=== PATIENT | female | born 1980 | race Caucasian/White ===

== ENCOUNTER → 2016-12-12 | Outpatient (CLI) | payer OTHER ==
[2015-08-30 09:56] VITALS: BP 174/94
[~2016-12-12] MED LIST: Birth Control PO
--- NOTE | 2016-12-12 09:46 | RAD ---
Chest, 2 views, 12/12/2016: History: Smoking history, family history of lung cancer Comparison is made to a study from 02/18/2010. The heart size is normal. There is a calcified granuloma in the right lung. No pulmonary infiltrate is seen. There is no evidence of pleural fluid. Mild spurring is present in the spine. IMPRESSION: No acute cardiopulmonary abnormality is detected.
== END | disposition home or self-care (01) ==
LOC: DXRAD 09:22
PROVIDERS: ATTEND Nurse Practitioner Family
DX: Z87.891 Personal history of nicotine dependence (principal); Z80.1 Family history of malignant neoplasm of trachea, bronchus and lung
CPT/HCPCS: 71020

== ENCOUNTER → 2017-10-12 | Outpatient (CLI) | payer OTHER ==
[2015-08-30 09:56] VITALS: BP 174/94
--- NOTE | 2017-10-12 12:48 | RAD ---
PA and lateral chest radiograph. History: Dyspnea for 2 weeks. Comparison: December 12, 2016. Findings: Cardiomediastinal silhouette is within normal limits for size. Bilateral lung marquis appear clear without evidence of infiltrate, effusion, or pneumothorax. Old granulomatous disease of chest is noted. Impression: 1. No acute cardiopulmonary process. Electronically signed by: Mikael Delgadillo MD (10/12/2017 12:45 PM) [facility]
== END | disposition home or self-care (01) ==
LOC: RAD 10:51
PROVIDERS: ATTEND Physician Assistant
DX: D71 Functional disorders of polymorphonuclear neutrophils (principal); Z87.891 Personal history of nicotine dependence
CPT/HCPCS: 71046

== ENCOUNTER → 2018-03-17 | Outpatient (CLI) | payer OTHER ==
[2015-08-30 09:56] VITALS: BP 174/94
--- NOTE | 2018-03-17 18:39 | RAD ---
EXAM: CHEST 2 VIEWS. HISTORY: Dyspnea, cough. COMPARISON: 10/12/2017. FINDINGS: Frontal and lateral views of the chest are obtained. The lungs are expanded to the 11th posterior ribs. The hemidiaphragms are not flattened. There are no confluent infiltrates. There is no pneumothorax or pleural effusion. The heart is not enlarged. IMPRESSION: 1. Hyperinflation may indicate only deep respiratory effort. Correlate for air trapping. No confluent infiltrates. Electronically signed by: Phill Little MD (03/17/2018 6:36 PM) [facility]
== END | disposition home or self-care (01) ==
LOC: RAD 17:52
PROVIDERS: ATTEND Family Medicine
DX: R06.09 Other forms of dyspnea (principal); R05 Cough; R09.89 Other specified symptoms and signs involving the circulatory and respiratory systems
CPT/HCPCS: 71046

== ENCOUNTER 2018-06-10 17:31 | Emergency (ER) | payer OTHER ==
[~2018-06-10] VITALS: Ht 175.3 cm; Wt 77.1 kg
--- NOTE | 2018-06-10 18:20 | PHYS DOC ---
Past History Past Medical History: Ovarian Cyst, Other Past Surgical History: Cholecystectomy, Hysterectomy Adult General Chief Complaint Chief Complaint: FLANK PAIN HPI HPI Patient is a 37 year old female who presents with complaining of intermittent episodes of right flank pain for the last 2 weeks as a sharp pain with radiation to lower back that happens without relation to activity or ambulation or eating. Patient states the pain sometimes lasts all day and rated her pain from 3-10. Patient states her pain right thigh 6/10. Patient was seen by her primary care physician and had blood in her urine but because of insurance problem was not able to have CT scan. Patient states she has a new plan for insurance today and has of increasing pain decided to come to ER. Patient denies fever, chills, urinary symptom, vomiting, diarrhea and constipation. Pt. follows with in [facility]. Review of Systems Review of Systems Constitutional: Denies fever or chills [] Eyes: Denies change in visual acuity, redness, or eye pain [] HENT: Denies nasal congestion or sore throat [] Respiratory: Denies cough or shortness of breath [] Cardiovascular: No additional information not addressed in HPI [] GI: Complaints of abdominal pain, nausea. Denies, vomiting, bloody stools or diarrhea [] : Denies dysuria or hematuria [] Musculoskeletal: Denies back pain or joint pain [] Integument: Denies rash or skin lesions [] Neurologic: Denies headache, focal weakness or sensory changes [] Endocrine: Denies polyuria or polydipsia [] All other systems were reviewed and found to be within normal limits, except as documented in this note. Family History Family History Uncle and Grandfather with Renal CA Current Medications Current Medications See Nursing Allergies Allergies Allergies Coded Allergies Type Severity Reaction Last Updated Verified codeine Allergy Unknown 04/19/14 Yes Physical Exam Physical Exam Constitutional: Well developed, well nourished, moderate distress, non-toxic appearance. [] HENT: Normocephalic, atraumatic, oropharynx moist, no oral exudates, nose normal. [] Eyes: PERRLA, EOMI, conjunctiva normal, no discharge. [] Neck: Normal range of motion, no tenderness, supple, no stridor. [] Cardiovascular:Heart rate regular rhythm, no murmur [] Lungs & Thorax: Bilateral breath sounds clear to auscultation [] Abdomen: Bowel sounds normal, soft, mild Rt. flank tenderness, no masses, no pulsatile masses. [] Old surgery scars. Skin: Warm, dry, no erythema, no rash. [] Back: No tenderness, no CVA tenderness. [] Extremities: No tenderness, no cyanosis, no clubbing, ROM intact, no edema. [] No psoas or heel tap. Neurologic: Alert and oriented X 3, normal motor function, normal sensory function, no focal deficits noted. [] Psychologic: Affect anxious, judgement normal, mood normal. [] EKG EKG [] Radiology/Procedures Radiology/Procedures My interpretation of abdomen CT with and without contrast. Shows no acute hydronephrosis or acute surgical findings. Course & Med Decision Making Course & Med Decision Making Pertinent Labs and Imaging studies are pending. Patient care transferred to Dr. Churchill at 1820. Pt[address] CT without contrast shows no acute surgical processes or hydro nephrosis. Pt. complaints of increased abd. pain. Now requesting narcotics. [address] with contrast. Impression: 1. Abdomen Pain- Rt Flank 2. Constipation Dragon Disclaimer Dragon Disclaimer This electronic medical record was generated, in whole or in part, using a voice recognition dictation system. Departure Departure: Impression: Primary Impression: Right flank pain Referrals: ALONSO PINEDA (PCP) Kevin Disclaimer This chart was dictated in whole or in part using Voice Recognition software in a busy, high-work load, and often noisy Emergency Department environment. It may contain unintended and wholly unrecognized errors or omissions. Discharge Summary Visit Information Final Diagnosis Problems Medical Problems: (1) Right flank pain Status: Acute Brief Hospital Course Allergies Allergies Coded Allergies Type Severity Reaction Last Updated Verified codeine Allergy Intermediate 06/10/18 Yes Vital Signs Vital Signs Date Time Temp Pulse Resp B/P (MAP) Pulse Ox O2 Delivery O2 Flow Rate FiO2 06/10/18 22:10 66 18 120/34 (62) 98 Room Air 06/10/18 17:31 98.8 Lab Results Laboratory Tests Test 06/10/18 18:00 White Blood Count 8.1 x10^3/uL (4.0-11.0) Red Blood Count 4.22 x10^6/uL (3.50-5.40) Hemoglobin 14.3 g/dL (12.0-15.5) Hematocrit 41.8 % (36.0-47.0) Mean Corpuscular Volume 99 fL (79-100) Mean Corpuscular Hemoglobin 34 pg (25-35) Mean Corpuscular Hemoglobin Concent 34 g/dL (31-37) Red Cell Distribution Width 11.8 % (11.5-14.5) Platelet Count 219 x10^3/uL (140-400) Neutrophils (%) (Auto) 55 % (31-73) Lymphocytes (%) (Auto) 32 % (24-48) Monocytes (%) (Auto) 11 % (0-9) Eosinophils (%) (Auto) 2 % (0-3) Basophils (%) (Auto) 1 % (0-3) Neutrophils # (Auto) 4.4 x10^3uL (1.8-7.7) Lymphocytes # (Auto) 2.6 x10^3/uL (1.0-4.8) Monocytes # (Auto) 0.8 x10^3/uL (0.0-1.1) Eosinophils # (Auto) 0.1 x10^3/uL (0.0-0.7) Basophils # (Auto) 0.0 x10^3/uL (0.0-0.2) Urine Collection Type Unknown Urine Color Yellow Urine Clarity Hazy Urine pH 6.0 Urine Specific [place] >=1.030 Urine Protein Neg (NEG-TRACE) Urine Glucose (UA) Neg mg/dL (NEG) Urine Ketones (Stick) Neg mg/dL (NEG) Urine Blood Neg (NEG) Urine Nitrite Neg (NEG) Urine Bilirubin Neg (NEG) Urine Urobilinogen Dipstick 0.2 mg/dL (0.2 mg/dL) Urine Leukocyte Esterase Neg (NEG) Urine RBC Occ /HPF (0-2) Urine WBC Occ /HPF (0-4) Urine Squamous Epithelial Cells Many /LPF Urine Bacteria 0 /HPF (0-FEW) Urine Mucus Mod /LPF Sodium Level 140 mmol/L (136-145) Potassium Level 3.7 mmol/L (3.5-5.1) Chloride Level 104 mmol/L (98-107) Carbon Dioxide Level 27 mmol/L (21-32) Anion Gap 9 (6-14) Blood Urea Nitrogen 15 mg/dL (7-20) Creatinine 0.8 mg/dL (0.6-1.0) Estimated GFR (Cockcroft-Gault) 80.7 BUN/Creatinine Ratio 19 (6-20) Glucose Level 104 mg/dL (70-99) Calcium Level 8.4 mg/dL (8.5-10.1) Total Bilirubin 0.3 mg/dL (0.2-1.0) Aspartate Amino Transf (AST/SGOT) 12 U/L (15-37) Alanine Aminotransferase (ALT/SGPT) 16 U/L (14-59) Alkaline Phosphatase 56 U/L (46-116) Total Protein 6.5 g/dL (6.4-8.2) Albumin 3.2 g/dL (3.4-5.0) Albumin/Globulin Ratio 1.0 (1.0-1.7) Lipase 94 U/L (73-393) Brief Hospital Course Ms. Siddiqui is a 37 old fe,a;e who presented with rt. flank abd. pain. No acute surgical processes noted. No acute hydronephrosis. Patient follow-up primary care. Clear fluid diet patient return if any concerns. Discharge Information Condition at Discharge: Improved, Stable Disposition/Orders: D/C to Home Dischare Medications Current Medications Magnesium Hydroxide (Milk Of Magnesia) 2,400 mg 1X ONCE PO Last administered on 06/10/18at 19:56; Start 06/10/18 at 20:00; Stop 06/10/18 at 20:01; Status DC Fentanyl Citrate (Fentanyl 2ml Vial) 50 mcg 1X ONCE IV Last administered on 06/10/18at 19:58; Start 06/10/18 at 20:00; Stop 06/10/18 at 20:01; Status DC Ondansetron HCl (Zofran) 8 mg 1X ONCE IV Last administered on 06/10/18at 19:56; Start 06/10/18 at 20:00; Stop 06/10/18 at 20:01; Status DC Lactated Ringer's 1,000 ml @ 1,000 mls/hr 1X ONCE IV Last administered on 06/10at 19:55; Start 06/10/18 at 20:00; Stop 06/10/18 at 20:59; Status DC Iohexol (Omnipaque 240 Mg/ml) 50 ml [employer]K-[employer] ONCE .ROUTE ; Start 06/10/18 at 19:53 ; Stop 06/10/18 at 19:54; Status DC Iohexol (Omnipaque 240 Mg/ml) 50 ml 1X ONCE PO Last administered on 06/10/18at 21:13; Start 06/10/18 at 20:45; Stop 06/10/18 at 20:46; Status DC Iohexol (Omnipaque 300 Mg/ml) 75 ml 1X ONCE IV Last administered on 06/10/18at 21:13; Start 06/10/18 at 20:45; Stop 06/10/18 at 20:46; Status DC Info (Do NOT chart on this entry -- for MONITORING) 1 each PRN DAILY PRN MC SEE COMMENTS; Start 06/10/18 at 20:30; Stop 06/10/18 at 22:13; Status DC Active Scripts Active Reported [ Control] PO DAILY REINA MARLEY MD Jun 10, 2018 18:20 TROY CHURCHILL MD Jun 10, 2018 18:49
[2018-06-10 18:21] LABS: BASO % 1 % (0-3); EOS # 0.1 x10^3/uL (0.0-0.7); EOS % 2 % (0-3); HEMATOCRIT 41.8 % (36.0-47.0); HEMOGLOBIN 14.3 g/dL (12.0-15.5); LYMPH # 2.6 x10^3/uL (1.0-4.8); LYMPH % 32 % (24-48); MEAN CORPUSCULAR HEMOGLOBIN 34 pg (25-35); MEAN CORPUSCULAR HGB CONC 34 g/dL (31-37); MEAN CORPUSCULAR VOLUME 99 fL (79-100); MONO # 0.8 x10^3/uL (0.0-1.1); MONO % 11 % (0-9); NEUT # 4.4 x10^3uL (1.8-7.7); NEUT % 55 % (31-73); PLATELET COUNT 219 x10^3/uL (140-400); RED BLOOD COUNT 4.22 x10^6/uL (3.50-5.40); RED CELL DISTRIBUTION WIDTH 11.8 % (11.5-14.5); WHITE BLOOD COUNT 8.1 x10^3/uL (4.0-11.0)
[2018-06-10 18:25] LABS: BACTERIA,URINE 0 /HPF (0-FEW); BILIRUBIN,URINE NEG (NEG); CLARITY,URINE HAZY; COLOR,URINE YELLOW; GLUCOSE,URINE NEG (NEG); NITRITE,URINE NEG (NEG); RBC,URINE OCC /HPF (0-2); SQUAMOUS EPITHELIAL CELL,UR MANY /LPF; UROBILINOGEN,URINE 0.2 mg/dL (0.2 mg/dL); WBC,URINE OCC /HPF (0-4)
[2018-06-10 18:28] LABS: ALBUMIN 3.2 g/dL (3.4-5.0); CALCIUM 8.4 mg/dL (8.5-10.1); CREATININE 0.8 mg/dL (0.6-1.0); GFR 80.7; POTASSIUM 3.7 mmol/L (3.5-5.1); TOTAL BILIRUBIN 0.3 mg/dL (0.2-1.0); TOTAL PROTEIN 6.5 g/dL (6.4-8.2)
--- NOTE | 2018-06-10 19:15 | RAD ---
Abdominal and Pelvis CT, Without Contrast: History: Right 2 days hematuria and right flank pain. Comparison: None. Procedure: Axial images are obtained of the abdomen and pelvis, without IV or oral contrast. CT Abdomen without Contrast: Findings: Evaluation of solid organs is limited without contrast. Evaluation of stomach and bowel is limited without oral contrast. Liver: Normal. Spleen: Normal. Pancreas: Normal. Adrenal Glands: Normal. Kidneys: Normal. There is no free air or free fluid. There is no lymphadenopathy. Impression: Please see CT Pelvis without Contrast. End Impression. CT Pelvis without Contrast: Findings: The urinary bladder appears normal. There is no free fluid. There is no lymphadenopathy. There is no pericolonic inflammation identified. The appendix is normal. Impression: No evidence of urolithiasis or obstructive uropathy. No acute findings. End impression PQRS Compliance Statement: One or more of the following individualized dose reduction techniques were utilized for this examination: 1. Automated exposure control 2. Adjustment of the mA and/or kV according to patient size 3. Use of iterative reconstruction technique Electronically signed by: Gigi Melo III, MD (06/10/2018 7:11 PM) [id number]
[2018-06-10] MEDS ORDERED: IOHEXOL 240 MG/ML 50ML VIAL. ONE (19:53)
[2018-06-10] MEDS ORDERED: MAGNESIUM HYDROXIDE 2,400 MG/30 ML ORAL.SUSP. PO ONE (20:00)
[2018-06-10] MEDS ORDERED: IV RINGERS SOLUTION,LACTATED 1,000 ML IV ONE (20:00)
[2018-06-10] MEDS ORDERED: ONDANSETRON PF 4 MG/2 ML VIAL. IV ONE (20:00)
[2018-06-10] MEDS ORDERED: CONTRAST GIVEN MC PRN (20:30)
[2018-06-10] MEDS ORDERED: IOHEXOL 240 MG/ML 50ML VIAL. PO ONE (20:45)
[2018-06-10] MEDS ORDERED: IOHEXOL 300 MG/ML 75 ML VIAL. IV ONE (20:45)
--- NOTE | 2018-06-10 21:35 | RAD ---
CT SCAN OF THE ABDOMEN AND PELVIS WITH IV CONTRAST. History: Right-sided abdominal pain with nausea and vomiting Comparison:None. Procedure: Contiguous axial images of the abdomen and pelvis were performed after the administration of 75 cc of Omni 300 IV contrast and oral contrast. CT Abdomen with contrast: Findings: There has been prior cholecystectomy. Liver: Unremarkable Spleen: Unremarkable Pancreas: Unremarkable Adrenal Glands: Unremarkable Kidneys: Unremarkable There is no mass or lymphadenopathy. There is no free air. There is no free fluid. Impression: No acute findings. End Impression CT Pelvis with Contrast: Findings: The urinary bladder appears normal. There is no lymphadenopathy. There is a trace of free fluid. The appendix is normal. Impression: Trace of free fluid is likely physiologic. This assumes the patient is not . Otherwise negative examination. PQRS Compliance Statement: One or more of the following individualized dose reduction techniques were utilized for this examination: 1. Automated exposure control 2. Adjustment of the mA and/or kV according to patient size 3. Use of iterative reconstruction technique Electronically signed by: Gigi Melo III, MD (06/10/2018 9:30 PM) [id number]
[2018-06-10 22:10] VITALS: BP 120/34
== END 2018-06-10 22:10 | disposition home or self-care (01) ==
LOC: ER 17:31
DX: K59.00 Constipation, unspecified (principal); R10.9 Unspecified abdominal pain; R11.2 Nausea with vomiting, unspecified; R31.9 Hematuria, unspecified; Z90.49 Acquired absence of other specified parts of digestive tract; Z90.710 Acquired absence of both cervix and uterus; Z88.5 Allergy status to narcotic agent
CPT/HCPCS: 36415; 74176; 74177; 80053; 81001; 83690; 85025; 96361; 96374; 96375; 99284; J2405; J3010; J7120; Q9966; Q9967

== ENCOUNTER → 2018-06-14 | Outpatient (CLI) | payer OTHER ==
[2018-06-10 22:10] VITALS: BP 120/34
--- NOTE | 2018-06-14 21:38 | RAD ---
EXAM: Pelvis and right hip, 3 views; lumbar spine, 4 views. HISTORY: Pain. COMPARISON: None. FINDINGS: Pelvis and right hip: A frontal view the pelvis and frontal and frog-leg views of the right hip are obtained. There is no fracture, dislocation or subluxation. There is a small right os acetabulum. Lumbar spine: Frontal, lateral and coned sacral views of the lumbar spine are obtained. There is no listhesis. The vertebral bodies are normal in height and the disc spaces are preserved. IMPRESSION: No acute osseous finding. Electronically signed by: Etelvina Driver MD (06/14/2018 9:34 PM) [id number]
--- NOTE | 2018-06-14 21:38 | RAD ---
EXAM: Pelvis and right hip, 3 views; lumbar spine, 4 views. HISTORY: Pain. COMPARISON: None. FINDINGS: Pelvis and right hip: A frontal view the pelvis and frontal and frog-leg views of the right hip are obtained. There is no fracture, dislocation or subluxation. There is a small right os acetabulum. Lumbar spine: Frontal, lateral and coned sacral views of the lumbar spine are obtained. There is no listhesis. The vertebral bodies are normal in height and the disc spaces are preserved. IMPRESSION: No acute osseous finding. Electronically signed by: Etelvina Driver MD (06/14/2018 9:34 PM) [id number]
== END | disposition home or self-care (01) ==
LOC: RAD 08:57
PROVIDERS: ATTEND Registered Nurse
DX: M54.5 Low back pain (principal); M25.551 Pain in right hip
CPT/HCPCS: 72100; 73502

== ENCOUNTER → 2019-02-06 | Outpatient (CLI) | payer MEDICAID ==
[~2019-02-06] MED LIST changes: +IOHEXOL 240 MG/ML 50ML VIAL. ONE; +IOHEXOL 300 MG/ML 75 ML VIAL. IV ONE
--- NOTE | 2019-02-06 14:20 | RAD ---
Examination: CT ABD PELV W/ORAL IV CONTRAST History: Upper abdominal pain for the past 6 months Comparison/Correlation: 2018 CT abdomen and pelvis with contrast Findings: Axial images of the abdomen and pelvis were obtained following IV and oral contrast demonstration. Sagittal and coronal reformatted images were provided. Visualized lung bases are clear. Liver, spleen, pancreas, adrenal glands, and kidneys are normal. No biliary dilatation. Cholecystectomy is evident. Urinary bladder is unremarkable. Appendix is normal. No bowel obstruction. No inflammatory processes identified. Uterus is not identified. Small umbilical hernia contains omental fat. Bony structures are unremarkable. Impression: No suspicious process. PQRS Compliance Statement: One or more of the following individualized dose reduction techniques were utilized for this examination: 1. Automated exposure control 2. Adjustment of the mA and/or kV according to patient size 3. Use of iterative reconstruction technique Electronically signed by: Kavon Luis MD (02/06/2019 2:16 PM) [facility]
== END | disposition home or self-care (01) ==
LOC: CT 09:48
PROVIDERS: ATTEND Registered Nurse
DX: K42.9 Umbilical hernia without obstruction or gangrene (principal); Z90.49 Acquired absence of other specified parts of digestive tract; Z90.710 Acquired absence of both cervix and uterus
CPT/HCPCS: 74177; Q9967

== ENCOUNTER → 2020-04-23 | Outpatient (CLI) | payer MEDICAID ==
[~2020-04-23] MED LIST changes: -IOHEXOL 240 MG/ML 50ML VIAL. ONE; -IOHEXOL 300 MG/ML 75 ML VIAL. IV ONE
--- NOTE | 2020-04-23 09:42 | RAD ---
Examination: WRIST 3V LEFT History: Reason: LEFT WRIST PAIN / Spl. Instructions: / History: Comparison/Correlation: None Findings: Total of 3 images of the left wrist were obtained. Joint spaces are normal. No fracture or bone destruction. Soft tissues are unremarkable. Impression: Normal left wrist 3 view x-ray exam. Electronically signed by: Kavon Luis MD (04/23/2020 9:39 AM) [id number]
== END ==
LOC: PMG 08:57
PROVIDERS: ATTEND Physician Assistant
DX: M25.532 Pain in left wrist (principal); Z68.28 Body mass index [BMI] 28.0-28.9, adult
CPT/HCPCS: 73110

== ENCOUNTER → 2021-03-20 | Outpatient (CLI) | payer BC, MEDICAID ==
--- NOTE | 2021-03-20 14:19 | RAD ---
Bilateral digital screening 2-D and 3-D (tomosynthesis) mammogram: Reason for examination: Routine screening. There are no prior studies. This is a baseline exam. Bilateral mammograms in CC and oblique projections were obtained with 2-D imaging and 3-D tomosynthes is imaging and reviewed on the workstation. Interpretation was made with the benefit of CAD. Findings: Breast density: Category C. The breasts are heterogeneously dense, which may obscure small masses. There is a focal asymmetry in the 9:00 position of the right breast, approximately 6 cm from the nipp le at posterior depth. This measures about 8 mm in maximum dimension on the. No other evidence of a s uspicious mass seen. There are no malignant appearing calcifications or architectural distortion. Impression: Focal asymmetry in the 9:00 position right breast, 6 cm from the nipple. Further evaluation with a di agnostic right mammogram and targeted right breast ultrasound is recommended ASSESSMENT: BI-RADS 0. Incomplete. Recommendations: Diagnostic right mammogram, targeted right breast ultrasound. The patient will be contacted with results and additional imaging scheduled. This patient's information has been entered into a reminder system for the patient to be notified wit h the results of her examination by mail and a target date for the next mammogram. Your patient's mammogram demonstrates that she has dense breast tissue (breast density category C or D), which could hide abnormalities, and if she has other risk factors for breast cancer that have bee n identified, she might benefit from supplemental screening tests that may be suggested by you as her ordering physician. Dense breast tissue, in and of itself, is a relatively common condition. Therefo re, this information is not provided to cause undue concern, but rather to raise your awareness and t o promote discussion with your patient regarding the presence of other risk factors, in addition to d ense breast tissue. Electronically signed by: Norma Matson MD (03/20/2021 2:16 PM) [id number]
== END ==
LOC: MAMMO 07:42
PROVIDERS: ATTEND Family Medicine
DX: Z12.31 Encounter for screening mammogram for malignant neoplasm of breast (principal)
CPT/HCPCS: 77063; 77067

== ENCOUNTER → 2021-04-03 | Outpatient (CLI) | payer BC, MEDICAID ==
--- NOTE | 2021-04-03 11:28 | RAD ---
EXAM: Right breast diagnostic mammogram; right breast sonogram. HISTORY: 40-year-old female presents for evaluation of nodularity within the right breast demonstrate d on a baseline mammogram performed 03/20/2021. TECHNIQUE: Full-field lateral and spot compression views of the right breast are obtained. Sonographi c imaging of the right breast targeted to the site of mammographic nodularity was also performed. COMPARISON: 03/20/2021 BREAST PARENCHYMAL DENSITY: Level C - Heterogeneously dense. FINDINGS: The nodular asymmetry of concern on the screening mammogram is not conspicuous on the curre nt exam. No suspicious mass, calcification or distortion is seen. Sonographic imaging of the right breast targeted to the site of prior mammographic nodularity demonst rates a 5 mm lymph node with benign fatty hilum at the 9:00 position 10 cm from the nipple. This may correspond with prior mammographic finding of concern or be a separate finding. No suspicious lesion is seen. IMPRESSION: 1. Small benign-appearing axillary tail lymph node at the 9:00 position 10 cm from the nipple. This m ay correspond with the previously described mammographic finding of concern or be a separate finding. 2. No convincing persistent suspicious mammographic finding. 3. BI-RADS Category 3: Probably benign finding(s). Precautionary short-term follow up with a diagnost ic right breast mammogram and sonogram in 6 months is recommended. If your mammogram demonstrates that you have dense breast tissue, which could hide abnormalities, and if you have other risk factors for breast cancer that have been identified, you might benefit from s upplemental screening tests that may be suggested by your ordering physician. Dense breast tissue, i n and of itself, is a relatively common condition. This information is not provided to cause undue c oncern, but rather to raise your awareness and to promote discussion with your physician regarding th e presence of other risk factors, in addition to dense breast tissue. A report of your mammography re sults will be sent to you and your physician. You should contact your physician if you have any ques tions or concerns regarding this report. Mammography is a sensitive method for finding small breast cancers, but it does not detect them all a nd is not a substitute for careful clinical examination. A negative mammogram does not negate a clin ically suspicious finding and should not result in delay in biopsying a clinically suspicious abnorma lity. PQRS compliance statement - Patient information was entered into a reminder system with a target due date for the next mammogram. "Our facility is accredited by the [employer] Mammography Program." Electronically signed by: Etelvina Driver MD (04/03/2021 11:25 AM) [id number]
== END ==
LOC: MAMMO 10:10
PROVIDERS: ATTEND Family Medicine
DX: R92.8 Other abnormal and inconclusive findings on diagnostic imaging of breast (principal)
CPT/HCPCS: 76641; 77065

== ENCOUNTER → 2021-10-04 | Outpatient (CLI) | payer BC, MEDICAID ==
--- NOTE | 2021-10-04 15:54 | RAD ---
EXAM: 1. Unilateral digital diagnostic mammography, right. 2. Right breast ultrasound. HISTORY: Six-month follow-up right breast density. TECHNIQUE: Right full field digital images were obtained in CC and MLO projections. Computer-aided de tection was applied. Sonography of the right upper outer breast was also performed. COMPARISON: 04/03/2021, 03/20/2021. COMPOSITION: C. The breasts are heterogeneously dense, which may obscure small masses. FINDINGS: The mammographic region of prior concern is no longer well seen. There is no clearly suspic ious mammographic finding. On today's sonography, there is a hypoechoic region at the 9:00 position 5 cm from the nipple that de monstrate shadowing on some images. It has ill-defined borders and measures 4 x 3 mm as seen on image 19.. This may reflect only normal parenchyma, but remains indeterminate. There are no suspicious axi llary lymph nodes. An inframammary lymph node is noted at the 9:00 position 10 cm from the nipple and appears stable. BI-RADS CATEGORY 4: Suspicious Abnormality--Biopsy is suggested. RECOMMENDATION: 1. Ultrasound-guided biopsy of a 4 x 3 mm hypoechoic region at the right 9:00 position 5 cm from the nipple. Electronically signed by: Phill Little MD (10/04/2021 3:51 PM) [email or web address]
== END ==
LOC: MAMMO 13:55
PROVIDERS: ATTEND Family Medicine
DX: N63.11 Unspecified lump in the right breast, upper outer quadrant (principal)
CPT/HCPCS: 76642; 77065; G0279; 77061